=== PATIENT | female | born 1975 | race Caucasian/White ===

== ENCOUNTER 2017-04-14 12:15 | Emergency (ER) | payer MEDICAID ==
--- NOTE | 2017-04-14 12:42 | EDM.PDOC ---
ED HPI GENERAL MEDICAL PROBLEM - General Chief Complaint: Upper Extremity Injury/Pain Stated Complaint: LT HAND PAIN Time Seen by Provider: 04/14/17 12:15 Source of Information: Reports: Patient History Limitations: Reports: No Limitations - History of Present Illness INITIAL COMMENTS - FREE TEXT/NARRATIVE: 41 y.o.w.f came to the ed due to pain at the base of her right thumb for 1 week or so. Pt was seen at her PMD who recommended a splint and motrin. Pt stated, those measures do not help. Pt denied trauma, is left handed, has FROM of all of her fingers. No other acute medical issues. BP 130/61 pulse 80 Temp 36.6, Pulse ox 98% RR 18 Onset Date: 04/07/17 Onset Time: 07:00 Duration: Day(s):, Intermittent Location: Reports: Upper Extremity, Right Quality: Reports: Dull Severity: Mild Improves with: Reports: Rest Worsens with: Reports: Movement Context: Reports: Other (does not remember ) Associated Symptoms: Reports: No Other Symptoms right hand Pain Score (Numeric/FACES): 7 - Related Data Allergies Allergy/AdvReac Type Severity Reaction Status Date / Time codeine Allergy Vomiting Verified 04/14/17 12:36 Home Meds: Home Meds . [Unable to Verify Home Med List] 04/14/17 [History] Review of Systems - Review of Systems Review Of Systems: See Below Constitutional: Reports: No Symptoms Eyes: Reports: No Symptoms Ears: Reports: No Symptoms Nose: Reports: No Symptoms Mouth/Throat: Reports: No Symptoms Respiratory: Reports: No Symptoms Cardiovascular: Reports: No Symptoms GI/Abdominal: Reports: No Symptoms Genitourinary: Reports: No Symptoms Musculoskeletal: Reports: Hand Pain (r thumb) Skin: Reports: No Symptoms Neurological: Reports: No Symptoms Psychiatric: Reports: No Symptoms ED EXAM, GENERAL - Physical Exam Exam: See Below Exam Limited By: No Limitations General Appearance: Alert, WD/WN, No Apparent Distress Eye Exam: Bilateral Eye: Normal Inspection Ears: Normal External Exam Ear Exam: Bilateral Ear: Auricle Normal Nose: Normal Inspection Throat/Mouth: Normal Inspection Head: Atraumatic Neck: Normal Inspection Respiratory/Chest: No Respiratory Distress Cardiovascular: Normal Peripheral Pulses Peripheral Pulses: 2+: Radial (L) GI/Abdominal: Normal Bowel Sounds, Soft (Female) Exam: Deferred Rectal (Female) Exam: Deferred Back Exam: Normal Inspection Extremities: Normal Inspection, Limited Range of Motion (of right thumb due to pain) Neurological: Alert Psychiatric: Normal Affect, Normal Mood Skin Exam: Warm, Intact, Normal Color Lymphatic: No Adenopathy Course - Vital Signs Text/Narrative:: 41 y.o.w.f came to the ed due to pain at the base of her right thumb for 1 week or so. Pt was seen at her PMD who recommended a splint and motrin. Pt stated, those measures do not help. Pt denied trauma, is left handed, has FROM of all of her fingers. No other acute medical issues. BP 130/61 pulse 80 Temp 36.6, Pulse ox 98% RR 18 PE: minor tenderness at the base of the right thumb. FROM Imaging: Not indicat Impression: R thumb sprain X 1 week Tx: Motrin, Ice Reexam: Improved Plan: D/C with instructions Last Recorded V/S: Last Vital Signs Temp Pulse 86 04/14/17 12:15 Resp 16 04/14/17 12:15 BP 130/61 04/14/17 12:15 Pulse Ox 98 04/14/17 12:15 Departure - Departure Time of Disposition: 12:40 Disposition: Home, Self-Care 01 Condition: Good Clinical Impression: Sprain of right thumb Qualifiers: Encounter type: initial encounter Sprain of finger site: metacarpophalangeal joint Qualified Code(s): S63.641A - Sprain of metacarpophalangeal joint of right thumb, initial encounter - Discharge Information Instructions: Thumb Sprain Referrals: Purvi Guerra NP [Primary Care Provider] - Forms: ED Department Discharge Additional Instructions: Please take Motrin, apply ice to the affected area, Please f/u with your PMD and or orthopedic surgeon.
== END 2017-04-14 12:50 | disposition home or self-care (01) ==
LOC: FB.ED 12:15
DX: S63.641A Sprain of metacarpophalangeal joint of right thumb, initial encounter (principal); Z88.5 Allergy status to narcotic agent; X58.XXXA Exposure to other specified factors, initial encounter
CPT/HCPCS: 99283

== ENCOUNTER 2017-07-21 00:17 | Emergency (ER) | payer MEDICAID ==
--- NOTE | 2017-07-21 00:58 | EDM.PDOC ---
ED HPI GENERAL MEDICAL PROBLEM - General Chief Complaint: Upper Extremity Injury/Pain Stated Complaint: RT FINGER PAIN Time Seen by Provider: 07/21/17 00:45 Source of Information: Reports: Patient History Limitations: Reports: No Limitations - History of Present Illness INITIAL COMMENTS - FREE TEXT/NARRATIVE: Carla comes in for inspection of fingers #3,4,5 on right hand that were injured when slammed by a car trunk lid about a week ago. There is resiual pain and some stiffness that she is concerned about not improving. She is also worried about infection. There is no numbness. She has taken no meds. Rt hand Pain Score (Numeric/FACES): 10 - Related Data Allergies Allergy/AdvReac Type Severity Reaction Status Date / Time codeine Allergy Vomiting Verified 07/21/17 00:32 Home Meds: Home Meds . [Unable to Verify Home Med List] 04/14/17 [History] Past Medical History Cardiovascular History: Reports: CAD, Hypertension, [place] Endocrine/Metabolic History: Reports: Diabetes, Type II, Hypothyroidism - Past Surgical History Cardiovascular Surgical History: Reports: Coronary Artery Bypass Social & Family History - Family History Family Medical History: Noncontributory Endocrine/Metabolic: Reports: Diabetes, Type I - Tobacco Use Smoking Status *Q: Current Every Day Smoker Years of Tobacco use: 20 Packs/Tins Daily: 0.5 - Caffeine Use Caffeine Use: Reports: Coffee, Soda - Recreational Drug Use Recreational Drug Use: No Review of Systems - Review of Systems Review Of Systems: ROS reveals no pertinent complaints other than HPI. ED EXAM, GENERAL - Physical Exam Exam: See Below Exam Limited By: No Limitations General Appearance: Alert, WD/WN, No Apparent Distress Head: Normocephalic Neck: Normal Inspection, Supple Respiratory/Chest: Lungs Clear, Normal Breath Sounds Cardiovascular: Regular Rate, Rhythm Back Exam: Normal Inspection Extremities: Limited Range of Motion (Digits #3,#4.#5 of R hand: healing abrasions overlying dorsal surfaces at PIP joints, minor swelling, no erythema or warmth, flexion of 45 deg only at PIP, 80 deg at DIP; no deformity of the MCP joints or R hand; CMS intact) Neurological: Alert, Oriented, CN II-XII Intact, Normal Gait, No Motor/Sensory Deficits Psychiatric: Normal Affect, Normal Mood Skin Exam: Warm, Dry Lymphatic: No Adenopathy Course - Vital Signs Text/Narrative:: No meds were administered at the [facility] ED. Last Recorded V/S: Last Vital Signs Temp 36.4 C 07/21/17 00:20 Pulse 73 07/21/17 00:20 Resp 18 07/21/17 00:20 BP 151/75 H 07/21/17 00:20 Pulse Ox 100 07/21/17 00:20 Departure - Departure Time of Disposition: 00:58 Disposition: Home, Self-Care 01 Condition: Fair Clinical Impression: Abrasion of finger of right hand Qualifiers: Encounter type: initial encounter Qualified Code(s): S60.419A - Abrasion of unspecified finger, initial encounter Contusion of finger of right hand Qualifiers: Encounter type: initial encounter Finger: unspecified finger Qualified Code(s) : S60.00XA - Contusion of unspecified finger without damage to nail, initial encounter - Discharge Information Referrals: PCP,None [Primary Care Provider] - - Problem List & Annotations (1) Abrasion of finger of right hand SNOMED Code(s): 917204749 Code(s): S60.419A - ABRASION OF UNSPECIFIED FINGER, INITIAL ENCOUNTER Status: Acute Current Visit: Yes Annotation/Comment:: Local wound cares Qualifiers: Encounter type: initial encounter Qualified Code(s): S60.419A - Abrasion of unspecified finger, initial encounter (2) Contusion of finger of right hand SNOMED Code(s): 22088778 Code(s): S60.00XA - CONTUSION OF UNSP FINGER WITHOUT DAMAGE TO NAIL, INIT ENCNTR Status: Acute Current Visit: Yes Annotation/Comment:: AROM encouraged, NSAIDs for analgesic Qualifiers: Encounter type: initial encounter Finger: unspecified finger Qualified Code(s): S60.00XA - Contusion of unspecified finger without damage to nail, initial encounter - Problem List Review Problem List Initiated/Reviewed/Updated: Yes - Assessment/Plan Plan: Follow up if needed.
== END 2017-07-21 01:00 | disposition home or self-care (01) ==
LOC: FB.ED 00:17
DX: S60.00XA Contusion of unspecified finger without damage to nail, initial encounter (principal); S60.412A Abrasion of right middle finger, initial encounter; S60.414A Abrasion of right ring finger, initial encounter; S60.416A Abrasion of right little finger, initial encounter; I10 Essential (primary) hypertension; E11.9 Type 2 diabetes mellitus without complications; F17.210 Nicotine dependence, cigarettes, uncomplicated; Z88.5 Allergy status to narcotic agent; W23.1XXA Caught, crushed, jammed, or pinched between stationary objects, initial encounter
CPT/HCPCS: 99283

== ENCOUNTER 2018-04-28 19:56 | Emergency (ER) | payer MEDICAID ==
--- NOTE | 2018-04-28 20:45 | EDM.PDOC ---
ED HPI GENERAL MEDICAL PROBLEM - General Chief Complaint: General Stated Complaint: FLU SYMPTONS Time Seen by Provider: 04/28/18 20:00 Source of Information: Reports: Patient, Family History Limitations: Reports: No Limitations - History of Present Illness INITIAL COMMENTS - FREE TEXT/NARRATIVE: 42 years old w f with IDDM, came to the ed with her SO due to gen bodyache, nausea, ear pain and not feeling well. Pt denies trauma, no C/P no Dysuria, had , however, sick contact. Her blood sugar was 350 HOME COORDINATOR. Pt took her insulin, BS did not go down, however. No other acute medical issues. BP 158/82 RR 16 Pulse ox 98% on RA Temp 36.7 Pulse 87 Onset Date: 04/17/18 Onset Time: 08:00 Duration: Day(s):, Getting Worse, Intermittent Location: Reports: Face, Generalized Quality: Reports: Ache, Burning Severity: Moderate Improves with: Reports: Medication Worsens with: Reports: None Context: Reports: Sick Contact Associated Symptoms: Reports: Nausea/Vomiting, Weakness - Related Data Allergies Allergy/AdvReac Type Severity Reaction Status Date / Time codeine Allergy Vomiting Verified 04/28/18 20:22 Home Meds: Home Meds Amoxicillin/Potassium Clav [Augmentin 875-125 Tablet] 1 each PO BID #20 tablet 04/28/18 [Rx] Hydrocort/Neomycin/Polymyxin B [Cortisporin Otic Soln] 3 drop EARBOTH Q8HR #1 bottle 04/28/18 [Rx] Past Medical History Cardiovascular History: Reports: CAD, Hypertension, [place] Endocrine/Metabolic History: Reports: Diabetes, Type II, Hypothyroidism - Past Surgical History Cardiovascular Surgical History: Reports: Coronary Artery Bypass Social & Family History - Family History Family Medical History: Noncontributory Endocrine/Metabolic: Reports: Diabetes, Type I - Caffeine Use Caffeine Use: Reports: Coffee, Soda ED ROS GENERAL - Review of Systems Review Of Systems: See Below Constitutional: Reports: Decreased Appetite HEENT: Reports: Ear Pain Respiratory: Reports: No Symptoms Cardiovascular: Reports: No Symptoms Endocrine: Reports: High Glucose GI/Abdominal: Reports: Nausea : Reports: No Symptoms Musculoskeletal: Reports: Muscle Pain (geneelized ) Skin: Reports: No Symptoms Neurological: Reports: No Symptoms Psychiatric: Reports: No Symptoms Hematologic/Lymphatic: Reports: No Symptoms Immunologic: Reports: No Symptoms ED EXAM, GENERAL - Physical Exam Exam: See Below Exam Limited By: No Limitations General Appearance: Alert, WD/WN, Moderate Distress Eye Exam: Bilateral Eye: Normal Inspection Ears: Normal Canal, Other (OI/OE) Ear Exam: Bilateral Ear: Auricle Normal Nose: Normal Inspection, Normal Mucosa Throat/Mouth: Normal Lips, Normal Voice, No Airway Compromise, Other (dry mucosal membrane) Head: Atraumatic, Normocephalic Neck: Normal Inspection, Supple, Non-Tender Respiratory/Chest: No Respiratory Distress, Lungs Clear, Normal Breath Sounds, No Accessory Muscle Use, Chest Non-Tender Cardiovascular: Normal Peripheral Pulses, Regular Rate, Rhythm, No Edema, No Gallop, No Murmur, No Rub Peripheral Pulses: 2+: Brachial (R) GI/Abdominal: Normal Bowel Sounds, Soft, Non-Tender, No Organomegaly, No Abnormal Bruit, No Mass, Pelvis Stable (Female) Exam: Deferred Rectal (Female) Exam: Deferred Back Exam: Normal Inspection, Full Range of Motion Extremities: Normal Inspection, Normal Range of Motion, Non-Tender, No Pedal Edema Neurological: Alert, Oriented, CN II-XII Intact, Normal Cognition, Normal Gait, No Motor/Sensory Deficits Psychiatric: Normal Affect, Normal Mood Skin Exam: Warm, Dry, Intact, Normal Color, No Rash Lymphatic: No Adenopathy Course - Vital Signs Text/Narrative:: 42 years old w f with IDDM, came to the ed with her SO due to gen bodyache, nausea, ear pain and not feeling well. Pt denies trauma, no C/P no Dysuria, had , however, sick contact. Her blood sugar was 350 HOME COORDINATOR. Pt took her insulin, BS did not go down, however. No other acute medical issues. BP 158/82 RR 16 Pulse ox 98% on RA Temp 36.7 Pulse 87 PE: WNWD w f with gen body ache, not feeling well, ear pain high BS and mild nausea, no vomiting Labs: CBC nl, BMP: Na 130 K 4.6 GFR > 60 HGA1C 10.5 UA Glucosuria Impression: IDDM, hyperglycemia, Noncompliant, OM/OI. viral syndrome, tension H/ A Tx: Augmentin, Reg Insulin, NS, Zofran, Toradol Reexam: Improved, BS was 256 on D/C Plan: D/C with instructions Last Recorded V/S: Last Vital Signs Temp 37.2 C 04/28/18 22:35 Pulse 100 04/28/18 20:00 Resp 18 04/28/18 22:35 BP 147/81 H 04/28/18 22:35 Pulse Ox 97 04/28/18 22:35 - Orders/Labs/Meds Orders: Active Orders 24 hr Category Date Time Status Accu Check [Blood Glucose Check, Bedside] [RC] ONETIME Care 04/28/18 20:10 Active Peripheral IV Insertion Adult [OM.PC] Routine Oth 04/28/18 21:14 Ordered Labs: Laboratory Tests 04/28/18 04/28/18 04/28/18 Range/Units 20:12 20:35 20:35 WBC 5.4 (4.5-12.0) X10-3/uL RBC 4.47 (3.23-5.20) x10(6)uL Hgb 13.7 (11.5-15.5) g/dL Hct 40.7 (30.0-51.3) % MCV 91.2 (80-96) fL MCH 30.6 (27.7-33.6) pg MCHC 33.6 (32.2-35.4) g/dL RDW 11.7 (11.5-15.5) % Plt Count 178 (125-369) X10(3)uL MPV 8.1 (7.4-10.4) fL Neut % (Auto) 73.6 (46-82) % Lymph % (Auto) 14.3 (13-37) % Angelina % (Auto) 8.3 (4-12) % Eos % (Auto) 3 (1.0-5.0) % Baso % (Auto) 0 (0-2) % Neut # (Auto) 4.0 (1.6-8.3) # Lymph # (Auto) 0.8 (0.6-5.0) # Angelina # (Auto) 0.4 (0.0-1.3) # Eos # (Auto) 0.2 (0.0-0.8) # Baso # (Auto) 0.0 (0.0-0.2) # Sodium 130 L (135-145) mmol/L Potassium 4.6 (3.5-5.3) mmol/L Chloride 97 L (100-110) mmol/L Carbon Dioxide 26 (21-32) mmol/L BUN 13 (7-18) mg/dL Creatinine 1.0 (0.55-1.02) mg/dL Est Cr Clr Drug Dosing 57.37 mL/min Estimated GFR (MDRD) > 60 (>60) BUN/Creatinine Ratio 13.0 (9-20) Glucose 311 H (80-116) mg/dL POC Glucose 316 H (80-116) mg/dL Hemoglobin A1c (4.5-6.2) % Calcium 8.6 (8.6-10.2) mg/dL Total Bilirubin 0.3 (0.1-1.3) mg/dL AST 12 (5-25) IU/L ALT 22 (12-36) U/L Alkaline Phosphatase 94 (56-112) IU/L Total Protein 7.0 (6.0-8.0) g/dL Albumin 3.1 L (3.5-5.2) g/dL Globulin 3.9 g/dL Albumin/Globulin Ratio 0.8 Urine Color (YELLOW) Urine Appearance (CLEAR) Urine pH (5.0-6.5) Ur Specific Lawrence (1.010-1.025) Urine Protein (NEGATIVE) mg/dL Urine Glucose (UA) (NEGATIVE) mg/dL Urine Ketones (NEGATIVE) mg/dL Urine Occult Blood (NEGATIVE) Urine Nitrite (NEGATIVE) Urine Bilirubin (NEGATIVE) Urine Urobilinogen (NEGATIVE) mg/dL Ur Leukocyte Esterase (NEGATIVE) Urine RBC (0) Urine WBC (0) Ur Squamous Epith Cells (NS,R,O) Urine Bacteria (NS) 04/28/18 04/28/18 04/28/18 Range/Units 20:35 20:51 22:14 WBC (4.5-12.0) X10-3/uL RBC (3.23-5.20) x10(6)uL Hgb (11.5-15.5) g/dL Hct (30.0-51.3) % MCV (80-96) fL MCH (27.7-33.6) pg MCHC (32.2-35.4) g/dL RDW (11.5-15.5) % Plt Count (125-369) X10(3)uL MPV (7.4-10.4) fL Neut % (Auto) (46-82) % Lymph % (Auto) (13-37) % Angelina % (Auto) (4-12) % Eos % (Auto) (1.0-5.0) % Baso % (Auto) (0-2) % Neut # (Auto) (1.6-8.3) # Lymph # (Auto) (0.6-5.0) # Angelina # (Auto) (0.0-1.3) # Eos # (Auto) (0.0-0.8) # Baso # (Auto) (0.0-0.2) # Sodium (135-145) mmol/L Potassium (3.5-5.3) mmol/L Chloride (100-110) mmol/L Carbon Dioxide (21-32) mmol/L BUN (7-18) mg/dL Creatinine (0.55-1.02) mg/dL Est Cr Clr Drug Dosing mL/min Estimated GFR (MDRD) (>60) BUN/Creatinine Ratio (9-20) Glucose (80-116) mg/dL POC Glucose 248 H (80-116) mg/dL Hemoglobin A1c 10.2 H (4.5-6.2) % Calcium (8.6-10.2) mg/dL Total Bilirubin (0.1-1.3) mg/dL AST (5-25) IU/L ALT (12-36) U/L Alkaline Phosphatase (56-112) IU/L Total Protein (6.0-8.0) g/dL Albumin (3.5-5.2) g/dL Globulin g/dL Albumin/Globulin Ratio Urine Color Yellow (YELLOW) Urine Appearance Clear (CLEAR) Urine pH 5.0 (5.0-6.5) Ur Specific Lawrence 1.015 (1.010-1.025) Urine Protein 30 H (NEGATIVE) mg/dL Urine Glucose (UA) >1000 H (NEGATIVE) mg/dL Urine Ketones Negative (NEGATIVE) mg/dL Urine Occult Blood Moderate H (NEGATIVE) Urine Nitrite Negative (NEGATIVE) Urine Bilirubin Negative (NEGATIVE) Urine Urobilinogen Normal (NEGATIVE) mg/dL Ur Leukocyte Esterase Negative (NEGATIVE) Urine RBC 0-5 (0) Urine WBC 0-5 (0) Ur Squamous Epith Cells Occasional (NS,R,O) Urine Bacteria Rare H (NS) Meds: Medications Discontinued Medications Generic Name Dose Route Start Last Admin Trade Name Freq PRN Reason Stop Dose Admin Sodium Chloride 1,000 mls @ 999 mls/hr 04/28/18 21:03 04/28/18 21:10 Normal Saline IV 04/28/18 22:03 999 mls/hr .BOLUS ONE Administration Insulin Human Regular 7 unit 04/29/18 07:30 Humulin R SUBCUT BIDAC SHARAN Insulin Human Regular 7 unit 04/28/18 21:14 04/28/18 21:15 Humulin R SUBCUT 04/28/18 21:15 7 unit ONETIME STA Administration Insulin Human Regular Confirm 04/28/18 21:16 04/28/18 21:23 Humulin R Administered 04/28/18 21:17 Not Given Dose 300 unit .ROUTE .STK-MED ONE Ketorolac Tromethamine 30 mg 04/28/18 22:29 04/28/18 22:30 Toradol IVPUSH 04/28/18 22:30 30 mg ONETIME ONE Administration Ondansetron HCl 8 mg 04/28/18 21:09 04/28/18 21:15 Zofran IVPUSH 04/28/18 21:10 8 mg ONETIME ONE Administration Sodium Chloride 10 ml 04/28/18 21:14 04/28/18 21:10 Saline Flush FLUSH 10 ml ASDIRECTED PRN Administration Keep Vein Open Departure - Departure Time of Disposition: 22:31 Disposition: Home, Self-Care 01 Condition: Good Clinical Impression: Hyperglycemia due to type 2 diabetes mellitus, Otitis media, Viral syndrome - Discharge Information Prescriptions: Hydrocort/Neomycin/Polymyxin B [Cortisporin Otic Soln] 3 drop EARBOTH Q8HR #1 bottle Amoxicillin/Potassium Clav [Augmentin 875-125 Tablet] 1 each PO BID #20 tablet Instructions: Ear Drops, Adult, Otitis Media, Adult, [id number] Referrals: PCP,None [Primary Care Provider] - Forms: ED Department Discharge Additional Instructions: Please check your blood sugar every 6-8 and adjust the insulin does accordingly , take abx as recommended, please f/u, come back if your symptoms get worse acutely. - My Orders Last 24 Hours: My Active Orders 04/28/18 20:10 Accu Check [Blood Glucose Check, Bedside] [RC] ONETIME 04/28/18 21:14 Peripheral IV Insertion Adult [OM.PC] Routine - Assessment/Plan Last 24 Hours: My Active Orders 04/28/18 20:10 Accu Check [Blood Glucose Check, Bedside] [RC] ONETIME 04/28/18 21:14 Peripheral IV Insertion Adult [OM.PC] Routine
[2018-04-28 21:00] LABS: HEMOGLOBIN A1C 10.2 % (4.5-6.2)
[2018-04-28] MEDS ORDERED: Sodium Chloride 0.9% 1,000 ML IV ONE (21:03)
[2018-04-28] MEDS ORDERED: Ondansetron 4 MG/2 ML SDV IVPUSH ONE (21:09)
[2018-04-28] MEDS ORDERED: Insulin Regular, Human 100 Units/ML 3 ML Vial SUBCUT STA (21:14)
[2018-04-28] MEDS ORDERED: Sodium Chloride 0.9% 10 ML Syringe FLUSH PRN (21:14)
[2018-04-28] MEDS ORDERED: Insulin Regular, Human 100 Units/ML 3 ML Vial ONE (21:16)
[2018-04-28] MEDS ORDERED: Ketorolac 30 MG/ML SDV IVPUSH ONE (22:29)
[2018-04-29] MEDS ORDERED: Insulin Regular, Human 100 Units/ML 3 ML Vial SUBCUT SCH (07:30)
== END 2018-04-28 22:45 | disposition home or self-care (01) ==
LOC: FB.ED 19:56
DX: E11.65 Type 2 diabetes mellitus with hyperglycemia (principal); H66.90 Otitis media, unspecified, unspecified ear; B34.9 Viral infection, unspecified; G44.209 Tension-type headache, unspecified, not intractable; I10 Essential (primary) hypertension; Z91.19 Patient's noncompliance with other medical treatment and regimen; Z88.5 Allergy status to narcotic agent
CPT/HCPCS: 36415; 80053; 81001; 82962; 83036; 85025; 96361; 96374; 96375; 99283; J1815; J1885; J2405; J7030

== ENCOUNTER 2018-05-15 09:54 | Emergency (ER) | payer MEDICAID ==
[2018-05-15] MEDS ORDERED: Alum Hydroxide/Mag Hydroxide 15 ML, Lidocaine 2% 15 ML PO ONE ×2 (10:35)
[2018-05-15] MEDS ORDERED: Ondansetron 8 MG Tab.DIS PO ONE (10:35)
--- NOTE | 2018-05-15 10:40 | EDM.PDOC ---
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 after eating and unable to pass stool unless taking a laxative and gen Malaise. No N/V no dizziness. No Trauma. No other acute medical issues. BP 125/80 RR 18 Pulse ox 98% on RA Temp 36.8 Pulse 101 Onset Date: 05/15/18 Onset Time: 06:00 Duration: Getting Worse, Intermittent Location: Reports: Abdomen (epigastric pain) Quality: Reports: Ache, Burning Severity: Mild Improves with: Reports: Medication, Other (not eating) Worsens with: Reports: Eating Context: Reports: Other Abdominal Pain Score (Numeric/FACES): 8 - Related Data Allergies Allergy/AdvReac Type Severity Reaction Status Date / Time codeine Allergy Vomiting Verified 04/28/18 20:22 naproxen [From Aleve] Allergy Rash Verified 05/15/18 10:04 Home Meds: Home Meds Amiodarone [Cordarone] 200 mg DAILY 05/15/18 [History] Bisacodyl [Correctol] 15 mg PO DAILY PRN 05/15/18 [History] Carvedilol 6.25 mg 1200 05/15/18 [History] Furosemide 20 mg ASDIRECTED PRN 05/15/18 [History] Insulin Glargine,Hum.Rec.Anlog [Basaglar Kwikpen U-100] 15 unit SQ BEDTIME 05/15 [History] Levothyroxine [Synthroid] 50 mcg PO ACBREAKFAST 05/15/18 [History] Omeprazole 20 mg PO BID #60 tabElizabethrap 05/15/18 [Rx] atorvaSTATin Calcium [Atorvastatin Calcium] 80 mg 1200 05/15/18 [History] metFORMIN [Glucophage XR] 500 mg PO BIDMEALS 05/15/18 [History] Past Medical History Cardiovascular History: Reports: CAD, High Cholesterol, Hypertension, [place] Other Cardiovascular History: 3 vessel bypass Gastrointestinal History: Reports: Chronic Constipation, GERD, GI Bleed, PUD Genitourinary History: Reports: None SITE ACQUISITION MANAGER History: Reports: Other SITE ACQUISITION MANAGER History: [id number] Endocrine/Metabolic History: Reports: Diabetes, Type II, Hypothyroidism - Infectious Disease History Infectious Disease History: Reports: Chicken Pox, Shingles - Past Surgical History HEENT Surgical History: Reports: Myringotomy w Tube(s) Other HEENT Surgeries/Procedures: bilat tubes in ears Cardiovascular Surgical History: Reports: Coronary Artery Bypass GI Surgical History: Reports: EGD Female Surgical History: Reports: Section, Tubal Ligation Other Female Surgeries/Procedures: CS x 1 Social & Family History - Family History Family Medical History: Noncontributory Endocrine/Metabolic: Reports: Diabetes, Type I - Tobacco Use Smoking Status *Q: Current Every Day Smoker Years of Tobacco use: 30 Packs/Tins Daily: 1 - Caffeine Use Caffeine Use: Reports: Coffee, Soda - Recreational Drug Use Recreational Drug Use: No ED ROS GENERAL - Review of Systems Review Of Systems: See Below Constitutional: Reports: Malaise HEENT: Reports: No Symptoms Respiratory: Reports: No Symptoms Cardiovascular: Reports: Chest Pain Endocrine: Reports: No Symptoms GI/Abdominal: Reports: No Symptoms : Reports: No Symptoms Musculoskeletal: Reports: No Symptoms Skin: Reports: No Symptoms Neurological: Reports: No Symptoms Psychiatric: Reports: No Symptoms Hematologic/Lymphatic: Reports: No Symptoms Immunologic: Reports: No Symptoms ED EXAM, GI/ABD - Physical Exam Exam: See Below Exam Limited By: No Limitations General Appearance: Alert, WD/WN, Mild Distress Eyes: Bilateral: Normal Appearance Ears: Normal External Exam Nose: Normal Inspection Throat/Mouth: Normal Inspection, Normal Voice, No Airway Compromise Head: Atraumatic, Normocephalic Neck: Normal Inspection, Supple, Non-Tender, Full Range of Motion Respiratory/Chest: No Respiratory Distress, Lungs Clear, Normal Breath Sounds, Chest Non-Tender Cardiovascular: Normal Peripheral Pulses, Regular Rate, Rhythm, No Edema, No Gallop, No Murmur GI/Abdominal Exam: Normal Bowel Sounds, No Organomegaly, No Abnormal Bruit, No Mass, Pelvis Stable, Tender (epigatric) (Female) Exam: Deferred Rectal (Female) Exam: Deferred Back Exam: Normal Inspection, Full Range of Motion Extremities: Normal Inspection, Normal Range of Motion, Non-Tender, No Pedal Edema, Normal Capillary Refill Neurological: Alert, Oriented, CN II-XII Intact, Normal Cognition, Normal Gait Psychiatric: Normal Affect, Normal Mood Skin Exam: Warm, Dry, Intact, Normal Color, No Rash Lymphatic: No Adenopathy EKG INTERPRETATION EKG Date: 05/15/18 Time: 12:40 Rhythm: NSR Rate (Beats/Min): 85 [place]: Normal P-Wave: Present QRS: Normal ST-T: Normal QT: Normal Comparison: NA - No Prior EKG EKG Interpretation Comments: second ECG: same as 1st ECG, HR 89 ST on Lead II 1/2 mm elevated Course - Vital Signs Text/Narrative:: 42 y.o.w.f -smoker- H/O CAD, S/O triple CABG, IDDM, came to the ed due to epigastric pain, gen abd. after eating and unable to pass stool unless taking a laxative and gen Malaise. No N/V no dizziness. No Trauma. No other acute medical issues. BP 125/80 RR 18 Pulse ox 98% on RA Temp 36.8 Pulse 101 PE: WNWD W F with Gen Malaise and epigastric pain and mucus stool Imaging: Abd: NAD. Nephrolith left kidney Labs: Ca 10.9 Amylase 157 GFR 47 WBC 14.7 Neutros 11.1 Na 131 K 5.2 GFR 47 BUN 29 Cr 1.7 Stool was brown but Quiac pos. Impression: Dehydration, Hypercalcemia, pancreatitis, Hematochezia hyponatremia (amylase elevated, Lipase test not available), Gen Abd. pain after after eating Dx: Mesenteric angina. Tx: NS Zofran, GI coctail, Protronix Reexam: 100% pain free Plan: D/C with instructions Last Recorded V/S: Last Vital Signs Temp 36.3 C 05/15/18 10:00 Pulse 94 05/15/18 15:10 Resp 18 05/15/18 15:10 BP 111/68 05/15/18 15:10 Pulse Ox 99 05/15/18 15:10 - Orders/Labs/Meds Orders: Active Orders 24 hr Category Date Time Status Abdomen 2V AP Flat Upright [CR] Stat Exams 05/15/18 11:17 Taken Labs: Laboratory Tests 05/15/18 05/15/18 05/15/18 Range/Units 11:27 11:27 11:28 WBC 14.7 H (4.5-12.0) X10-3/uL RBC 4.91 (3.23-5.20) x10(6)uL Hgb 15.0 (11.5-15.5) g/dL Hct 44.7 (30.0-51.3) % MCV 91.0 (80-96) fL MCH 30.5 (27.7-33.6) pg MCHC 33.6 (32.2-35.4) g/dL RDW 11.7 (11.5-15.5) % Plt Count 338 (125-369) X10(3)uL MPV 8.4 (7.4-10.4) fL Neut % (Auto) 75.1 (46-82) % Lymph % (Auto) 14.0 (13-37) % [place] % (Auto) 6.4 (4-12) % Eos % (Auto) 4 (1.0-5.0) % Baso % (Auto) 0 (0-2) % Neut # (Auto) 11.1 H (1.6-8.3) # Lymph # (Auto) 2.1 (0.6-5.0) # [place] # (Auto) 0.9 (0.0-1.3) # Eos # (Auto) 0.6 (0.0-0.8) # Baso # (Auto) 0.0 (0.0-0.2) # Sodium 131 L (135-145) mmol/L Potassium 5.2 (3.5-5.3) mmol/L Chloride 97 L (100-110) mmol/L Carbon Dioxide 25 (21-32) mmol/L BUN 29 H D (7-18) mg/dL Creatinine 1.2 H (0.55-1.02) mg/dL Est Cr Clr Drug Dosing 47.81 mL/min Estimated GFR (MDRD) 49 L (>60) BUN/Creatinine Ratio 24.2 H (9-20) Glucose 311 H (80-116) mg/dL Calcium 10.9 H D (8.6-10.2) mg/dL Total Bilirubin 0.5 (0.1-1.3) mg/dL Direct Bilirubin 0.12 (0.10-0.20) mg/dL AST 10 D (5-25) IU/L ALT 32 D (12-36) U/L Alkaline Phosphatase 108 (56-112) IU/L Total Protein 8.3 H (6.0-8.0) g/dL Albumin 3.7 (3.5-5.2) g/dL Amylase 172 H (25-115) U/L Meds: Medications Discontinued Medications Generic Name Dose Route Start Last Admin Trade Name Nobleq PRN Reason Stop Dose Admin Al Hydroxide/Mg Hydroxide 15 0 ml 05/15/18 10:35 05/15/18 10:49 ml/ Lidocaine HCl 15 ml PO 05/15/18 10:36 15 ml ONETIME ONE Administration Sodium Chloride 1,000 mls @ 999 mls/hr 05/15/18 13:02 05/15/18 13:33 Normal Saline IV 05/15/18 14:02 999 mls/hr .BOLUS ONE Administration Ondansetron HCl 8 mg 05/15/18 10:35 05/15/18 10:45 Zofran Odt PO 05/15/18 10:36 8 mg ONETIME ONE Administration Pantoprazole Sodium 40 mg 05/15/18 13:11 05/15/18 13:46 Protonix Iv IVPUSH 05/15/18 13:12 40 mg ONETIME ONE Administration Departure - Departure Time of Disposition: 14:59 Disposition: Home, Self-Care 01 Condition: Good Clinical Impression: Hypercalcemia, Hyponatremia, Stool mucus, Hematochezia - Discharge Information Prescriptions: Omeprazole 20 mg PO BID #60 tab.rap. Instructions: Hypercalcemia, Acute Pancreatitis, [id number], Ondansetron injection, Pantoprazole injection, Dehydration, Adult, [id number], Diarrhea, Adult, [id number] Referrals: Bárbara Curtis NP [Primary Care Provider] - Gilberto Smith MD [Physician] - Forms: ED Department Discharge Additional Instructions: Please continue your medications, please follow up with Dr. Smith at clinic for recheck. Please come back if your symptoms worsen acutely. Omeprazole 20mg twice a day, start tomorrow. - My Orders Last 24 Hours: My Active Orders 05/15/18 11:17 Abdomen 2V AP Flat Upright [CR] Stat - Assessment/Plan Last 24 Hours: My Active Orders 05/15/18 11:17 Abdomen 2V AP Flat Upright [CR] Stat
[2018-05-15] MEDS ORDERED: Sodium Chloride 0.9% 1,000 ML IV ONE (13:02)
[2018-05-15] MEDS ORDERED: Pantoprazole 40 MG Vial IVPUSH ONE (13:11)
== END 2018-05-15 15:18 | disposition home or self-care (01) ==
LOC: FB.ED 09:54
DX: E83.52 Hypercalcemia (principal); E87.1 Hypo-osmolality and hyponatremia; K92.1 Melena; I10 Essential (primary) hypertension; I25.2 Old myocardial infarction; I25.10 Atherosclerotic heart disease of native coronary artery without angina pectoris; E11.9 Type 2 diabetes mellitus without complications; E03.9 Hypothyroidism, unspecified; F17.210 Nicotine dependence, cigarettes, uncomplicated; Z79.899 Other long term (current) drug therapy; Z79.4 Long term (current) use of insulin; Z96.22 Myringotomy tube(s) status; Z98.51 Tubal ligation status; Z88.5 Allergy status to narcotic agent
CPT/HCPCS: 36415; 74019; 80048; 80076; 82150; 82272; 85025; 96361; 96374; 99284; A9270; C9113; J7030

== ENCOUNTER 2018-06-01 21:50 | Emergency (ER) | payer SELFPAY ==
[2018-06-01] MEDS ORDERED: predniSONE 20 MG Tab PO ONE (21:53)
[2018-06-01] MEDS ORDERED: diphenhydrAMINE 50 MG/ML SDV IVPUSH ONE (22:01)
[2018-06-01] MEDS ORDERED: Hydrocortisone Sodium Succinate 100 MG/2 ML SDV IVPUSH ONE (22:01)
[2018-06-01] MEDS ORDERED: Pantoprazole 40 MG Vial IVPUSH ONE (22:02)
[2018-06-01] MEDS ORDERED: hydrOXYzine HCl 25 MG Tab PO ONE (22:04)
--- NOTE | 2018-06-01 22:10 | EDM.PDOC ---
ED HPI GENERAL MEDICAL PROBLEM - General Stated Complaint: ALLERGIC REACTION Time Seen by Provider: 06/01/18 21:55 Source of Information: Reports: Patient History Limitations: Reports: No Limitations - History of Present Illness INITIAL COMMENTS - FREE TEXT/NARRATIVE: Juan Carlos is a 42-year-old., Smoking 2 para 2 last disappeared years ago presents with a cane Loren pain reliever at 8 PM. She said admitted itching immediately. She denies shortness of breath wheezing throat swelling difficulties with speech chest pain fast heart rate diaphoresis lightheadedness abdominal pain stridor cough muscle aches and pains. Her last episode of allergic reaction was that of dermatitis scratching itching which she took Aleve approximately a year ago. She is allergic to naproxen and codeine. She uses to drug and hypertensive therapy carvedilol and amiodarone. She is diabetic and hypothyroid and treated for GERD. He does not have a heart condition. She has chronic shortness of lung disease from her smoking. - Related Data Allergies Allergy/AdvReac Type Severity Reaction Status Date / Time codeine Allergy Vomiting Verified 06/01/18 23:04 naproxen [From Aleve] Allergy Rash Verified 06/01/18 23:04 Home Meds: Home Meds Amiodarone [Cordarone] 200 mg DAILY 05/15/18 [History] Bisacodyl [Correctol] 15 mg PO DAILY PRN 05/15/18 [History] Carvedilol 6.25 mg 1200 05/15/18 [History] Furosemide 20 mg ASDIRECTED PRN 05/15/18 [History] Insulin Glargine,Hum.Rec.Anlog [Basaglar Kwikpen U-100] 15 unit SQ BEDTIME 05/15 [History] Levothyroxine [Synthroid] 50 mcg PO ACBREAKFAST 05/15/18 [History] Omeprazole 20 mg PO BID #60 tab.rap.dr 05/15/18 [Rx] atorvaSTATin Calcium [Atorvastatin Calcium] 80 mg 1200 05/15/18 [History] metFORMIN [Glucophage XR] 500 mg PO BIDMEALS 05/15/18 [History] hydrOXYzine HCl [Hydroxyzine HCl] 50 mg PO Q6HR PRN #20 ml 06/01/18 [Rx] Past Medical History Cardiovascular History: Reports: CAD, High Cholesterol, Hypertension, [place] Other Cardiovascular History: 3 vessel bypass Gastrointestinal History: Reports: Chronic Constipation, GERD, GI Bleed, PUD Genitourinary History: Reports: None SYSTEMS DEVELOPMENT MANAGER History: Reports: Other SYSTEMS DEVELOPMENT MANAGER History: [id number] Endocrine/Metabolic History: Reports: Diabetes, Type II, Hypothyroidism - Infectious Disease History Infectious Disease History: Reports: Chicken Pox, Shingles - Past Surgical History HEENT Surgical History: Reports: Myringotomy w Tube(s) Other HEENT Surgeries/Procedures: bilat tubes in ears Cardiovascular Surgical History: Reports: Coronary Artery Bypass GI Surgical History: Reports: EGD Female Surgical History: Reports: Section, Tubal Ligation Other Female Surgeries/Procedures: CS x 1 Social & Family History - Family History Family Medical History: Noncontributory Endocrine/Metabolic: Reports: Diabetes, Type I - Caffeine Use Caffeine Use: Reports: Coffee, Soda ED ROS GENERAL - Review of Systems Review Of Systems: ROS reveals no pertinent complaints other than HPI. ED EXAM, GENERAL - Physical Exam Exam: See Below Free Text/Narrative:: Patient ended moderate distress and continually itches her forearms. Mild rash noted on forearms. She is attended by her . She has a smoking odor to her breath. An looks older than her age. She is not short of breath nor does she have chest pain no tachypnea no tachycardia noted. Exam Limited By: No Limitations General Appearance: Alert, WD/WN, Moderate Distress Eye Exam: Bilateral Eye: Normal Inspection Ear Exam: Bilateral Ear: Auricle Normal, Canal Normal, TM normal Nose: Normal Inspection Throat/Mouth: Normal Inspection, Normal Lips, Normal Teeth, Normal Gums, Normal Oropharynx, Normal Voice, No Airway Compromise, Other (No angioedema no edema of the uvula or pharynx.) Head: Atraumatic, Normocephalic Neck: Normal Inspection, Non-Tender, Carotid Bruit, Other (No tracheal tug or tracheal deviation) Respiratory/Chest: No Respiratory Distress, Lungs Clear, Normal Breath Sounds, No Accessory Muscle Use, Chest Non-Tender, Other (No tachypnea no difficulty breathing no wheezes no stridor) Cardiovascular: Normal Peripheral Pulses, Regular Rate, Rhythm, No Edema, No Gallop, No JVD, No Murmur, No Rub, Other (No diaphoresis normal pink colored skin) Peripheral Pulses: 2+: Radial (L), Radial (R) GI/Abdominal: Normal Bowel Sounds, Soft, Non-Tender, No Organomegaly, No Distention, No Abnormal Bruit, Other (Mild increase abdominal girth) (Female) Exam: Deferred Rectal (Female) Exam: Deferred Back Exam: Normal Inspection, Full Range of Motion Extremities: Normal Inspection, Normal Range of Motion, Non-Tender, No Pedal Edema, Normal Capillary Refill Neurological: Alert, Oriented, CN II-XII Intact, Normal Cognition, Normal Gait, Normal Reflexes, No Motor/Sensory Deficits Lymphatic: No Adenopathy Course - Orders/Labs/Meds Orders: Active Orders 24 hr Category Date Time Status Sodium Chloride 0.9% [Normal Saline] 1,000 ml Med 06/01/18 22:15 Ordered IV ASDIRECTED Medication Orders Sodium Chloride (Normal Saline) 1,000 mls @ 500 mls/hr IV ASDIRECTED SHARAN Last Admin: 06/01/18 22:11 Dose: 500 mls/hr Meds: Medications Generic Name Dose Route Start Last Admin Trade Name Freq PRN Reason Stop Dose Admin Sodium Chloride 1,000 mls @ 500 mls/hr 06/01/18 22:15 06/01/18 22:11 Normal Saline IV 500 mls/hr ASDIRECTED SHARAN Administration Discontinued Medications Generic Name Dose Route Start Last Admin Trade Name Freq PRN Reason Stop Dose Admin Diphenhydramine HCl 50 mg 06/01/18 22:01 Benadryl IVPUSH 06/01/18 22:02 ONETIME ONE Epinephrine HCl 0.3 mg 06/01/18 22:21 Adrenalin SUBCUT 06/01/18 22:22 ONETIME ONE Hydrocortisone Sodium Succinate 100 mg 06/01/18 22:01 06/01/18 22:12 Solu-Cortef IVPUSH 06/01/18 22:02 100 mg ONETIME ONE Administration Hydroxyzine HCl 25 mg 06/01/18 22:04 Atarax PO 06/01/18 22:05 ONETIME ONE Pantoprazole Sodium 40 mg 06/01/18 22:02 06/01/18 22:19 Protonix Iv IVPUSH 06/01/18 22:03 40 mg ONETIME ONE Administration Departure - Departure Time of Disposition: 22:20 (Patient has dermal allergic reaction. No involvement of respiratory passages, heart, no hypotension or tachycardia or tachypnea. No stridor no cough no tracheal deviation no tracheal tug no suggestion of compromise either cardiorespiratory status. No GI symptoms. She was treated aggressively with intravenous flush, Benadryl was not ordered since she had 50 mg prior to coming to the hospital, 100 mg hydrocortisone IV, protonixs 40 mg IV, Atarax 25 mg by mouth. 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 If necessary she'll receive triamcinolone ointment for the pruitius. At this point we'll forego this treatment. She does not need epinephrine now.at 2124 50 % improved but still itchy. Start Triamcinolone cream( ointment more efficacious but too much clothing soiling anticipated.) Disposition: Home, Self-Care 01 Condition: Good Clinical Impression: Smoker, S/P CABG x 3, Diabetes 1.5, managed as type 2 Allergic reaction caused by a drug Qualifiers: Encounter type: initial encounter Qualified Code(s): T78.40XA - Allergy, unspecified, initial encounter COPD (chronic obstructive pulmonary disease) Qualifiers: COPD type: unspecified COPD Qualified Code(s): J44.9 - Chronic obstructive pulmonary disease, unspecified Hypertension Qualifiers: Hypertension type: essential hypertension Qualified Code(s): I10 - Essential ( primary) hypertension - Discharge Information *PRESCRIPTION DRUG MONITORING PROGRAM REVIEWED*: Not Applicable *COPY OF PRESCRIPTION DRUG MONITORING REPORT IN PATIENT ATIF: Not Applicable Additional Instructions: 40 allergic reaction received cortisone. This was last 6-8 hours. Given prescription for prednisone to take tablet twice a day 20 mg each for the next 2 days. Also Benadryl which have at home 50 mg 4 times a day and Atarax drug of choice for itching 25 mg 3 times a day. If you feel too dizzy and lightheaded with discoloration of antihistamines and stop the Benadryl. He was Protonix one tabletsone - My Orders Last 24 Hours: My Active Orders 06/01/18 22:15 Sodium Chloride 0.9% [Normal Saline] 1,000 ml IV ASDIRECTED - Assessment/Plan Last 24 Hours: My Active Orders 06/01/18 22:15 Sodium Chloride 0.9% [Normal Saline] 1,000 ml IV ASDIRECTED
[2018-06-01] MEDS ORDERED: Sodium Chloride 0.9% 1,000 ML IV SCH (22:15)
[2018-06-01] MEDS ORDERED: EPINEPHrine 1 MG/ML SDV SUBCUT ONE (22:21)
[2018-06-01] MEDS ORDERED: Triamcinolone Acetonide 0.5% Crm 15 GM Tube TOP SCH (22:45)
[2018-06-01] MEDS: hydrOXYzine HCl 25 MG Tab PO PRN ×2 (22:47→22:48)
[2018-06-02] MEDS ORDERED: predniSONE 20 MG Tab PO SCH (08:00)
== END 2018-06-01 23:32 | disposition home or self-care (01) ==
LOC: FB.ED 21:52
DX: L27.0 Generalized skin eruption due to drugs and medicaments taken internally (principal); L29.9 Pruritus, unspecified; T39.315A Adverse effect of propionic acid derivatives, initial encounter; J44.9 Chronic obstructive pulmonary disease, unspecified; I25.2 Old myocardial infarction; E03.9 Hypothyroidism, unspecified; K21.9 Gastro-esophageal reflux disease without esophagitis; E78.5 Hyperlipidemia, unspecified; F17.200 Nicotine dependence, unspecified, uncomplicated; E13.8 Other specified diabetes mellitus with unspecified complications; Z79.899 Other long term (current) drug therapy; Z95.1 Presence of aortocoronary bypass graft; Z79.4 Long term (current) use of insulin; Z88.5 Allergy status to narcotic agent; Z88.8 Allergy status to other drugs, medicaments and biological substances
CPT/HCPCS: 96361; 96372; 96374; 96375; 99282; A9270; C9113; J0171; J1720; J7030

== ENCOUNTER 2019-09-09 17:33 | Emergency (ER) | payer MEDICAID ==
--- NOTE | 2019-09-09 17:41 | EDM.PDOC ---
ED HPI GENERAL MEDICAL PROBLEM - General Stated Complaint: R FOOT PINKY TOE INJURY Time Seen by Provider: 09/09/19 17:40 Source of Information: Reports: Patient History Limitations: Reports: No Limitations - History of Present Illness INITIAL COMMENTS - FREE TEXT/NARRATIVE: 44-year-old female who reports that a dog was attacking her cat and she was trying to get the dog off of the cat and she kicked at the dog and either hit the dog or hit a stove that the dog and cat were around and sustained an injury to the fourth and fifth toes on the right foot. This occurred approximate 5:05 PM. She reports that the right fifth toe "seems to bend sideways". She reports 0 /10 level of pain now at rest but when she bears weight or tries to put pressure on the right fifth toe the pain goes up to a 10/10. There was other injuries. There was some bleeding from the right fourth and fifth toes but this has been controlled with direct pressure. She reports that she is a diabetic and her blood sugars are not always very well-controlled. He states that when she remembers to take her insulin her blood sugars are fairly well controlled but when she does not take her insulin, she can be out of control. No nausea or vomiting. No difficulty breathing. No chest pain. Her no other associated signs or symptoms. There are no other modifying factors. 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 (see below) (Nothing) right toe Pain Score (Numeric/FACES): 6 - Related Data Allergies Allergy/AdvReac Type Severity Reaction Status Date / Time codeine Allergy Vomiting Verified 09/09/19 18:36 naproxen [From Aleve] Allergy Rash Verified 09/09/19 18:36 Home Meds: Home Meds Amiodarone [Cordarone] 200 mg PO DAILY 05/15/18 [History] Furosemide 20 mg ASDIRECTED PRN 05/15/18 [History] Insulin Glargine,Hum.Rec.Anlog [Basaglar Kwikpen U-100] 15 unit SQ BEDTIME 05/15 [History] Levothyroxine [Synthroid] 50 mcg PO ACBREAKFAST 05/15/18 [History] atorvaSTATin Calcium [Atorvastatin Calcium] 80 mg PO 1200 05/15/18 [History] carvediloL [Carvedilol] 6.25 mg PO 1200 05/15/18 [History] metFORMIN [Glucophage XR] 500 mg PO BIDMEALS 05/15/18 [History] hydrOXYzine HCL [Hydroxyzine HCl] 50 mg PO Q6HR PRN #20 ml 06/01/18 [Rx] Mupirocin Oint [Bactroban Oint] 22 gm TP TID #1 tube 09/09/19 [Rx] Past Medical History Cardiovascular History: Reports: CAD, High Cholesterol, Hypertension, MS Other Cardiovascular History: 3 vessel bypass Gastrointestinal History: Reports: Chronic Constipation, GERD, GI Bleed, PUD Genitourinary History: Reports: None 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: [id number] Endocrine/Metabolic History: Reports: Diabetes, Type II, Hypothyroidism - Infectious Disease History Infectious Disease History: Reports: Chicken Pox, Shingles - Past Surgical History HEENT Surgical History: Reports: Myringotomy w Tube(s) Other HEENT Surgeries/Procedures: bilat tubes in ears Cardiovascular Surgical History: Reports: Coronary Artery Bypass GI Surgical History: Reports: EGD Female Surgical History: Reports: Section, Tubal Ligation Social & Family History - Family History Endocrine/Metabolic: Reports: Diabetes, Type I - Tobacco Use Smoking Status *Q: Current Every Day Smoker - Caffeine Use Caffeine Use: Reports: Coffee, Soda - Alcohol Use Alcohol Use History: No - Living Situation & Occupation Occupation: Unemployed Review of Systems - Review of Systems Review Of Systems: See Below Constitutional: Reports: No Symptoms Eyes: Reports: No Symptoms Ears: Reports: No Symptoms Nose: Reports: No Symptoms Mouth/Throat: Reports: No Symptoms Respiratory: Reports: No Symptoms Cardiovascular: Reports: No Symptoms GI/Abdominal: Reports: No Symptoms Genitourinary: Reports: No Symptoms Musculoskeletal: Reports: Foot Pain (Right fifth toe pain) Skin: Reports: Wound (Right fourth and fifth toes with abrasions) Neurological: Reports: No Symptoms ED EXAM, GENERAL - Physical Exam Exam: See Below Exam Limited By: No Limitations General Appearance: Alert, WD/WN, Mild Distress Eye Exam: Bilateral Eye: EOMI, Normal Inspection Ears: Normal External Exam, Hearing Grossly Normal Ear Exam: Bilateral Ear: Auricle Normal Nose: Normal Inspection, Normal Mucosa, No Blood Throat/Mouth: Normal Inspection, Normal Oropharynx, Normal Voice, No Airway Compromise Head: Atraumatic, Normocephalic Neck: Normal Inspection, Supple, Non-Tender, Full Range of Motion Respiratory/Chest: No Respiratory Distress, Lungs Clear, Normal Breath Sounds, No Accessory Muscle Use Cardiovascular: Normal Peripheral Pulses, Regular Rate, Rhythm, No Murmur Peripheral Pulses: 2+: Radial (L), Radial (R), Dorsalis Pedis (L), Dorsalis Pedis (R) GI/Abdominal: Normal Bowel Sounds, Soft, Non-Tender Back Exam: Normal Inspection Extremities: No Pedal Edema, Normal Capillary Refill, Other (Tender over the proximal aspect of the proximal phalanx of the fifth toe) Neurological: Alert, Oriented, CN II-XII Intact, Normal Cognition, No Motor/ Sensory Deficits Skin Exam: Warm, Dry, Normal Color, No Rash, Wound/Incision (Abrasions on the fourth and fifth toes.) Course - Vital Signs Last Recorded V/S: Last Vital Signs Temp 36.3 C 09/09/19 17:45 Pulse 98 09/09/19 17:45 Resp 20 09/09/19 17:45 BP 138/74 09/09/19 17:45 Pulse Ox 99 09/09/19 17:45 - Orders/Labs/Meds Orders: Active Orders 24 hr Category Date Time Status Vaccines to be Administered [RC] PER UNIT ROUTINE Care 09/09/19 17:57 Active Foot Comp Min 3V Rt [CR] Stat Exams 09/09/19 17:56 Taken Meds: Medications Discontinued Medications Generic Name Dose Route Start Last Admin Trade Name Freq PRN Reason Stop Dose Admin Diphtheria/Tetanus/Acell Pertussis 0.5 ml 09/09/19 17:57 09/09/19 18:15 Adacel IM 09/09/19 17:58 0.5 ml .ONCE ONE Administration - Radiology Interpretation Free Text/Narrative:: X-ray of right foot shows fracture of base of the proximal phalanx of the right fifth toe. - Re-Assessments/Exams Free Text/Narrative Re-Assessment/Exam: 09/09/19 18:20: Patient has fracture of the base of the proximal phalanx of the fifth toe and it is somewhat angulated. The wounds are abrasions on both the fourth and fifth toes. These were cleaned by the nursing staff and an appropriate supportive dressing was applied to both toes. She has a flat bottom shoe at present. I will prescribe her Bactroban ointment to apply to the wounds times daily to try to prevent development of infection. I will also have her raudel tape the fourth and fifth toes for comfort and support in the next few days. She was told to her foot often and watch for any signs of infection. She was given a Tdap Immunization today to bring her tetanus immunization status up- to-date. Departure - Departure Time of Disposition: 18:35 Disposition: Home, Self-Care 01 Condition: Good Clinical Impression: Abrasion, right lesser toe(s), initial encounter Fracture of fifth toe, right, closed Qualifiers: Encounter type: initial encounter Qualified Code(s): S92.501A - Displaced unspecified fracture of right lesser toe(s), initial encounter for closed fracture - Discharge Information Prescriptions: Mupirocin Oint [Bactroban Oint] 22 gm TP TID #1 tube Instructions: Toe Fracture, [id number], Wound Care, Adult, Abrasion, Easy-to- Read Referrals: Kemar Case MD [Primary Care Provider] - Additional Instructions: You have a fracture of the base of your right fifth toe. Clean the wounds with soap and water and apply the Bactroban ointment to the wounds 3 times daily until they have healed. You should tape the fourth and fifth toes together and wear flat bottomed shoes for comfort and support and ambulate as tolerated. Try to of the right foot for the next few days and try to elevate it as often as possible. You may take Tylenol for pain as needed. Back to the emergency department for increasing pain, redness, fever or any other concerning sign or symptom. You were given a Tdap immunization today to bring your tetanus immunization status up-to-date. Sepsis Event Note - Focused Exam Vital Signs: Vital Signs Temp Pulse Resp BP Pulse Ox 09/09/19 17:45 36.3 C 98 20 138/74 99 Date Exam was Performed: 09/09/19 Time Exam was Performed: 18:43 - My Orders Last 24 Hours: My Active Orders 09/09/19 17:56 Foot Comp Min 3V Rt [CR] Stat 09/09/19 17:57 Vaccines to be Administered [RC] PER UNIT ROUTINE - Assessment/Plan Last 24 Hours: My Active Orders 09/09/19 17:56 Foot Comp Min 3V Rt [CR] Stat 09/09/19 17:57 Vaccines to be Administered [RC] PER UNIT ROUTINE
[2019-09-09] MEDS ORDERED: Diphtheria,Pertussis(Acell),Tetanus Vaccine 0.5 ML SDV IM ONE (17:57)
--- NOTE | 2019-09-10 10:38 | CR ---
INDICATION: Kicked object with right foot, now with pain. RIGHT FOOT: Three views of the right foot revealed an oblique fracture through the proximal metaphysis - shaft of the proximal phalanx of the 5th toe with medial angulation and possibly minimal dorsal angulation, at the fracture site. No other significant appearing bone or joint abnormality was identified. IMPRESSION: Medial dorsal angulation of the proximal phalangeal 5th toe fracture site on the right. MTDD
== END 2019-09-09 18:55 | disposition home or self-care (01) ==
LOC: FB.ED 17:33
DX: S92.511A Displaced fracture of proximal phalanx of right lesser toe(s), initial encounter for closed fracture (principal); I25.10 Atherosclerotic heart disease of native coronary artery without angina pectoris; E78.00 Pure hypercholesterolemia, unspecified; I10 Essential (primary) hypertension; I25.2 Old myocardial infarction; K21.9 Gastro-esophageal reflux disease without esophagitis; E11.9 Type 2 diabetes mellitus without complications; E03.9 Hypothyroidism, unspecified; F17.200 Nicotine dependence, unspecified, uncomplicated; Z23 Encounter for immunization; Z88.5 Allergy status to narcotic agent; Z88.8 Allergy status to other drugs, medicaments and biological substances; Z79.899 Other long term (current) drug therapy; W54.1XXA Struck by dog, initial encounter
CPT/HCPCS: 73630-RT; 90471; 90715; 99283-25

== ENCOUNTER 2020-02-18 02:34 | Emergency (ER) | payer MEDICAID ==
[2020-02-18] MEDS ORDERED: Sodium Chloride 0.9% 10 ML Syringe FLUSH PRN (03:03)
--- NOTE | 2020-02-18 04:23 | EDM.PDOC ---
ED HPI GENERAL MEDICAL PROBLEM - General Chief Complaint: Neuro Symptoms/Deficits Stated Complaint: TROUBLE SPEAKING Time Seen by Provider: 02/18/20 02:45 Source of Information: Reports: Patient History Limitations: Reports: No Limitations - History of Present Illness INITIAL COMMENTS - FREE TEXT/NARRATIVE: Patient presented to the ED because of word finding difficulty at about 0200 when she was talking to her daughter. The boyfriend talked to Carla and he noticed that she has difficulty in finding the words to say and it takes her a while to respond. She denies any double or blurry vision, no motor or sensory deficits. She scored 1 on the NIHSS. - Related Data Allergies Allergy/AdvReac Type Severity Reaction Status Date / Time codeine Allergy Vomiting Verified 02/18/20 02:46 naproxen [From Aleve] Allergy Rash Verified 02/18/20 02:46 Home Meds: Home Meds Amiodarone [Cordarone] 200 mg PO DAILY 05/15/18 [History] Furosemide 20 mg DAILY 05/15/18 [History] Insulin Glargine,Hum.Rec.Anlog [Basaglar Kwikpen U-100] 30 unit SQ BEDTIME 05/15/18 [History] Levothyroxine [Synthroid] 50 mcg PO ACBREAKFAST 05/15/18 [History] atorvaSTATin Calcium [Atorvastatin Calcium] 80 mg PO 1200 05/15/18 [History] carvediloL [Carvedilol] 6.25 mg PO DAILY 05/15/18 [History] metFORMIN [Glucophage XR] 500 mg PO BIDMEALS 05/15/18 [History] Aspirin [Ecotrin EC] 81 mg PO DAILY 02/18/20 [History] Past Medical History Cardiovascular History: Reports: CAD, High Cholesterol, Hypertension, [place] Other Cardiovascular History: 3 vessel bypass Respiratory History: Reports: Asthma Gastrointestinal History: Reports: Chronic Constipation, GERD, GI Bleed, PUD Genitourinary History: Reports: None 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 MANAGER 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: [id number] Musculoskeletal History: Reports: Arthritis Neurological History: Reports: Neuropathy, Diabetic Endocrine/Metabolic History: Reports: Diabetes, Type II, Hypothyroidism - Infectious Disease History Infectious Disease History: Reports: Chicken Pox, Shingles - Past Surgical History HEENT Surgical History: Reports: Myringotomy w Tube(s) Other HEENT Surgeries/Procedures: bilat tubes in ears Cardiovascular Surgical History: Reports: Coronary Artery Bypass GI Surgical History: Reports: EGD Female Surgical History: Reports: Section, Tubal Ligation Social & Family History - Family History Family Medical History: Noncontributory Endocrine/Metabolic: Reports: Diabetes, Type I - Tobacco Use Tobacco Use Status *Q: Current Every Day Tobacco User Years of Tobacco use: 30 Packs/Tins Daily: 0.5 - Caffeine Use Caffeine Use: Reports: Soda - Recreational Drug Use Recreational Drug Use: No - Living Situation & Occupation Occupation: Unemployed ED ROS GENERAL - Review of Systems Review Of Systems: See Below Constitutional: Reports: No Symptoms HEENT: Reports: No Symptoms Respiratory: Reports: No Symptoms Cardiovascular: Reports: No Symptoms Endocrine: Reports: No Symptoms GI/Abdominal: Reports: No Symptoms : Reports: No Symptoms Musculoskeletal: Reports: No Symptoms Skin: Reports: No Symptoms Neurological: Reports: Other (delayed in verbal response) ED EXAM, NEURO - Physical Exam Exam: See Below Exam Limited By: No Limitations General Appearance: Alert, No Apparent Distress Eye Exam: Bilateral Eye: PERRL Ears: Normal External Exam, Normal Canal Nose: Normal Inspection, Normal Mucosa Throat/Mouth: Normal Inspection, Normal Lips, Normal Teeth Head Exam: Atraumatic, Normocephalic Neck: Normal Inspection, Supple, Non-Tender, Full Range of Motion Respiratory/Chest: No Respiratory Distress, Lungs Clear, Normal Breath Sounds Cardiovascular: Normal Peripheral Pulses, Regular Rate, Rhythm, No Edema GI/Abdominal: Normal Bowel Sounds, Soft, Non-Tender, No Organomegaly Neurological: Alert, Normal Mood/Affect, Normal Dorsiflexion, CN II-XII Intact, Normal Plantar Flexion, Normal Gait, No Motor/Sensory Deficits, Oriented x 3 Course - Vital Signs Text/Narrative:: Labs/EKG/CXR/Head CT result was discussed with patient Patient refused to go to [facility] by an ambulance. She said she want to see her kids first and then her boyfriend will drop her to [facility]. Last Recorded V/S: Last Vital Signs Temp 36.7 C 02/18/20 02:40 Pulse 83 02/18/20 02:40 Resp 18 02/18/20 02:40 BP 165/88 H 02/18/20 02:40 Pulse Ox 100 02/18/20 02:40 - Orders/Labs/Meds Orders: Active Orders 24 hr Category Date Time Status EKG Documentation Completion [RC] ASDIRECTED Care 02/18/20 03:05 Active Chest 1V Frontal [CR] Stat Exams 02/18/20 03:03 Taken Head wo Cont [CT] Stat Exams 02/18/20 03:03 Taken Sodium Chloride 0.9% [Saline Flush] Med 02/18/20 03:03 Active 10 ml FLUSH ASDIRECTED PRN Saline Lock Insert [OM.PC] Routine Oth 02/18/20 03:03 Ordered EKG 12 Lead [EK] Routine Ther 02/18/20 03:03 Ordered Medication Orders Sodium Chloride (Saline Flush) 10 ml FLUSH ASDIRECTED PRN PRN Reason: Keep Vein Open Labs: Laboratory Tests 02/18/20 02/18/20 02/18/20 Range/Units 02:59 02:59 02:59 WBC 9.3 (4.5-12.0) X10-3/uL RBC 4.39 (3.23-5.20) x10(6)uL Hgb 13.6 (11.5-15.5) g/dL Hct 39.9 (30.0-51.3) % MCV 91.0 (80-96) fL MCH 31.0 (27.7-33.6) pg MCHC 34.0 (32.2-35.4) g/dL RDW 12.2 (11.5-15.5) % Plt Count 333 (125-369) X10(3)uL MPV 7.5 (7.4-10.4) fL Neut % (Auto) 65.4 (46-82) % Lymph % (Auto) 23.3 (13-37) % [place]imble % (Auto) 5.3 (4-12) % Eos % (Auto) 6 H (1.0-5.0) % Baso % (Auto) 1 (0-2) % Neut # (Auto) 6.1 (1.6-8.3) # Lymph # (Auto) 2.2 (0.6-5.0) # Trimble # (Auto) 0.5 (0.0-1.3) # Eos # (Auto) 0.5 (0.0-0.8) # Baso # (Auto) 0.0 (0.0-0.2) # PT 10.3 (9.0-11.1) sec INR 0.95 L (1.00-1.24) APTT 28.0 (24.4-33.2) SECONDS Sodium 138 (135-145) mmol/L Potassium 3.6 D (3.5-5.3) mmol/L Chloride 103 D (100-110) mmol/L Carbon Dioxide 26 (21-32) mmol/L BUN 14 D (7-18) mg/dL Creatinine 0.9 (0.55-1.02) mg/dL Est Cr Clr Drug Dosing 62.43 mL/min Estimated GFR (MDRD) > 60 (>60) BUN/Creatinine Ratio 15.6 (9-20) Glucose 195 H D (80-116) mg/dL Calcium 8.5 L D (8.6-10.2) mg/dL Total Bilirubin 0.3 (0.1-1.3) mg/dL AST 10 (5-25) IU/L ALT 16 D (12-36) U/L Alkaline Phosphatase 85 (56-112) IU/L Troponin I (4.0-60.3) pg/mL Total Protein 7.4 (6.0-8.0) g/dL Albumin 3.5 (3.5-5.2) g/dL Globulin 3.9 g/dL Albumin/Globulin Ratio 0.9 TSH, Ultra Sensitive (0.36-3.74) IU/mL 02/18/20 02/18/20 Range/Units 02:59 02:59 WBC (4.5-12.0) X10-3/uL RBC (3.23-5.20) x10(6)uL Hgb (11.5-15.5) g/dL Hct (30.0-51.3) % MCV (80-96) fL MCH (27.7-33.6) pg MCHC (32.2-35.4) g/dL RDW (11.5-15.5) % Plt Count (125-369) X10(3)uL MPV (7.4-10.4) fL Neut % (Auto) (46-82) % Lymph % (Auto) (13-37) % [place]ble % (Auto) (4-12) % Eos % (Auto) (1.0-5.0) % Baso % (Auto) (0-2) % Neut # (Auto) (1.6-8.3) # Lymph # (Auto) (0.6-5.0) # Trimble # (Auto) (0.0-1.3) # Eos # (Auto) (0.0-0.8) # Baso # (Auto) (0.0-0.2) # PT (9.0-11.1) sec INR (1.00-1.24) APTT (24.4-33.2) SECONDS Sodium (135-145) mmol/L Potassium (3.5-5.3) mmol/L Chloride (100-110) mmol/L Carbon Dioxide (21-32) mmol/L BUN (7-18) mg/dL Creatinine (0.55-1.02) mg/dL Est Cr Clr Drug Dosing mL/min Estimated GFR (MDRD) (>60) BUN/Creatinine Ratio (9-20) Glucose (80-116) mg/dL Calcium (8.6-10.2) mg/dL Total Bilirubin (0.1-1.3) mg/dL AST (5-25) IU/L ALT (12-36) U/L Alkaline Phosphatase (56-112) IU/L Troponin I 6.8 (4.0-60.3) pg/mL Total Protein (6.0-8.0) g/dL Albumin (3.5-5.2) g/dL Globulin g/dL Albumin/Globulin Ratio TSH, Ultra Sensitive 18.01 H* (0.36-3.74) IU/mL Meds: Medications Generic Name Dose Route Start Last Admin Trade Name Freq PRN Reason Stop Dose Admin Sodium Chloride 10 ml 02/18/20 03:03 Saline Flush FLUSH ASDIRECTED PRN Keep Vein Open Departure - Departure Time of Disposition: 04:00 Disposition: DC/Tfer to Acute Hospital 02 Condition: Good Clinical Impression: TIA (transient ischemic attack), Hypothyroidism - Discharge Information Referrals: Kemar Case MD [Primary Care Provider] - Additional Instructions: Proceed to [facility] ER Sepsis Event Note (ED) - Evaluation Sepsis Screening Result: No Definite Risk - Focused Exam Vital Signs: Vital Signs Temp Pulse Resp BP Pulse Ox 02/18/20 02:40 36.7 C 83 18 165/88 H 100 - My Orders Last 24 Hours: My Active Orders 02/18/20 03:03 Chest 1V Frontal [CR] Stat Head wo Cont [CT] Stat Sodium Chloride 0.9% [Saline Flush] 10 ml FLUSH ASDIRECTED PRN Saline Lock Insert [OM.PC] Routine EKG 12 Lead [EK] Routine 02/18/20 03:05 EKG Documentation Completion [RC] ASDIRECTED - Assessment/Plan Last 24 Hours: My Active Orders 02/18/20 03:03 Chest 1V Frontal [CR] Stat Head wo Cont [CT] Stat Sodium Chloride 0.9% [Saline Flush] 10 ml FLUSH ASDIRECTED PRN Saline Lock Insert [OM.PC] Routine EKG 12 Lead [EK] Routine 02/18/20 03:05 EKG Documentation Completion [RC] ASDIRECTED
--- NOTE | 2020-02-18 09:49 | CR ---
INDICATION: Aphasia. CHEST, ONE VIEW: A single AP upright view of the chest was obtained 02/18/20 - no comparisons available. The heart did not appear enlarged or abnormal in shape. Median sternotomy is noted with the superior most two wire sutures fractured. An active infiltrate or effusion was not identified. IMPRESSION: No acute process. MTDD
== END 2020-02-18 04:26 ==
LOC: FB.ED 02:34
DX: G45.9 Transient cerebral ischemic attack, unspecified (principal); E03.9 Hypothyroidism, unspecified; I25.10 Atherosclerotic heart disease of native coronary artery without angina pectoris; E78.00 Pure hypercholesterolemia, unspecified; I10 Essential (primary) hypertension; I25.2 Old myocardial infarction; J45.909 Unspecified asthma, uncomplicated; M19.90 Unspecified osteoarthritis, unspecified site; E11.40 Type 2 diabetes mellitus with diabetic neuropathy, unspecified; F17.210 Nicotine dependence, cigarettes, uncomplicated; Z88.5 Allergy status to narcotic agent; Z88.6 Allergy status to analgesic agent; Z79.4 Long term (current) use of insulin; Z79.899 Other long term (current) drug therapy; Z95.1 Presence of aortocoronary bypass graft; Z79.82 Long term (current) use of aspirin
CPT/HCPCS: 36415; 70450; 71045; 80053; 84443; 84484; 85025; 85610; 85730; 93005; 99285-25

== ENCOUNTER 2021-03-28 13:39 | Emergency (ER) | payer MEDICAID ==
[2021-03-28] MEDS ORDERED: Sodium Chloride 0.9% 10 ML Syringe FLUSH PRN (13:43)
--- NOTE | 2021-03-28 14:33 | EDM.PDOC ---
ED HPI GENERAL MEDICAL PROBLEM - General Chief Complaint: General Stated Complaint: COVID Time Seen by Provider: 03/28/21 13:45 Source of Information: Reports: Patient History Limitations: Reports: No Limitations - History of Present Illness INITIAL COMMENTS - FREE TEXT/NARRATIVE: Patient presented to the ED because cough productive of yellowish phlegm, weakness, fatigue and dyspnea for 1 week. There is no fever but has some chills. She also c/o nausea but no vomiting or diarrhea. No chest pain, palpitations or leg edema. - Related Data Allergies Allergy/AdvReac Type Severity Reaction Status Date / Time codeine Allergy Vomiting Verified 02/18/20 02:46 naproxen [From Aleve] Allergy Rash Verified 02/18/20 02:46 Home Meds: Home Meds Amiodarone [Cordarone] 200 mg PO DAILY 05/15/18 [History] Furosemide 20 mg DAILY 05/15/18 [History] Insulin Glargine,Hum.Rec.Anlog [Basaglar Kwikpen U-100] 30 unit SQ BEDTIME 05/15/18 [History] Levothyroxine [Synthroid] 50 mcg PO ACBREAKFAST 05/15/18 [History] atorvaSTATin Calcium [Atorvastatin Calcium] 80 mg PO 1200 05/15/18 [History] carvediloL [Carvedilol] 6.25 mg PO DAILY 05/15/18 [History] metFORMIN [Glucophage XR] 500 mg PO BIDMEALS 05/15/18 [History] Aspirin [Ecotrin EC] 81 mg PO DAILY 02/18/20 [History] Amoxicillin/Potassium Clav [Augmentin 875-125 Tablet] 1 each PO BID #20 tablet 03/28/21 [Rx] predniSONE [Prednisone] 20 mg PO DAILY #7 tablet 03/28/21 [Rx] Past Medical History Cardiovascular History: Reports: CAD, High Cholesterol, Hypertension, HI Other Cardiovascular History: 3 vessel bypass Respiratory History: Reports: Asthma Gastrointestinal History: Reports: Chronic Constipation, GERD, GI Bleed, PUD Genitourinary History: Reports: None 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: [id number] Musculoskeletal History: Reports: Arthritis Neurological History: Reports: Neuropathy, Diabetic Endocrine/Metabolic History: Reports: Diabetes, Type II, Hypothyroidism - Infectious Disease History Infectious Disease History: Reports: Chicken Pox, Shingles - Past Surgical History HEENT Surgical History: Reports: Myringotomy w Tube(s) Other HEENT Surgeries/Procedures: bilat tubes in ears Cardiovascular Surgical History: Reports: Coronary Artery Bypass GI Surgical History: Reports: EGD Female Surgical History: Reports: Section, Tubal Ligation Other Female Surgeries/Procedures: CS x 1 Social & Family History - Family History Family Medical History: No Pertinent Family History Endocrine/Metabolic: Reports: Diabetes, Type I - Tobacco Use Tobacco Use Status *Q: Current Every Day Tobacco User Years of Tobacco use: 10 Packs/Tins Daily: 1 - Caffeine Use Caffeine Use: Reports: None - Living Situation & Occupation Occupation: Unemployed ED ROS GENERAL - Review of Systems Review Of Systems: See Below Constitutional: Reports: No Symptoms HEENT: Reports: No Symptoms Respiratory: Reports: Shortness of Breath, Cough Cardiovascular: Reports: No Symptoms Endocrine: Reports: No Symptoms GI/Abdominal: Reports: No Symptoms : Reports: No Symptoms Musculoskeletal: Reports: No Symptoms Skin: Reports: No Symptoms Neurological: Reports: No Symptoms Psychiatric: Reports: Hallucinations Hematologic/Lymphatic: Reports: No Symptoms Immunologic: Reports: No Symptoms ED EXAM, GENERAL - Physical Exam Exam: See Below Exam Limited By: No Limitations General Appearance: Alert, No Apparent Distress Ears: Normal External Exam, Normal Canal Nose: Normal Inspection, Normal Mucosa Throat/Mouth: Normal Inspection, Normal Lips, Normal Teeth Head: Atraumatic, Normocephalic Neck: Normal Inspection, Supple, Non-Tender, Full Range of Motion Respiratory/Chest: No Respiratory Distress, Normal Breath Sounds, Rhonchi, Wheezing Cardiovascular: Normal Peripheral Pulses, Regular Rate, Rhythm, No Edema, No Gallop, No JVD, No Murmur GI/Abdominal: Normal Bowel Sounds, Soft, Non-Tender, No Organomegaly, No Distention Back Exam: Normal Inspection, Full Range of Motion Extremities: Normal Inspection, Normal Range of Motion, Non-Tender, No Pedal Edema, Normal Capillary Refill Neurological: Alert, Oriented, CN II-XII Intact, Normal Cognition, Normal Gait, Normal Reflexes, No Motor/Sensory Deficits Psychiatric: Normal Affect Skin Exam: Warm #1 Interpretation EKG Date: 03/28/21 Time: 13:57 Rhythm: NSR Rate (Beats/Min): 79 [place]: Normal P-Wave: Present QRS: Normal ST-T: Normal QT: Normal NE/PQ Interval: 162 Comparison: No Change EKG Interpretation Comments: NSR Old anterior infarct LAE Course - Vital Signs Text/Narrative:: Lab/EKG/CXR/Chest CTA result was reviewed and discussed with patient Last Recorded V/S: Last Vital Signs Temp 36.4 C 03/28/21 13:41 Pulse 82 03/28/21 13:41 Resp 16 03/28/21 13:41 BP 179/91 H 03/28/21 13:41 Pulse Ox 99 03/28/21 13:41 - Orders/Labs/Meds Orders: Active Orders 24 hr Category Date Time Status Ang Chest [CT] Stat Exams 03/28/21 14:34 Taken Sodium Chloride 0.9% [Saline Flush] Med 03/28/21 13:43 Active 10 ml FLUSH ASDIRECTED PRN Saline Lock Insert [OM.PC] Routine Oth 03/28/21 13:43 Ordered EKG 12 Lead [EK] Routine Ther 03/28/21 13:43 Ordered Medication Orders Sodium Chloride (Sodium Chloride 0.9% 10 Ml Syringe) 10 ml FLUSH ASDIRECTED PRN PRN Reason: Keep Vein Open Last Admin: 03/28/21 13:54 Dose: 10 ml Documented by: KEVAN Labs: Laboratory Tests 03/28/21 03/28/21 03/28/21 Range/Units 13:55 13:55 13:55 WBC 11.0 H (3.0-10.3) x10-3/uL RBC 4.01 (3.60-5.20) x10(6)uL Hgb 12.0 (11.4-15.5) g/dL Hct 36.1 (34.2-48.2) % MCV 90.0 (76.7-100.5) fL MCH 29.9 (23.9-33.9) pg MCHC 33.2 (31.9-34.8) g/dL RDW 12.1 L (12.3-16.5) % Plt Count 296 (151-488) x10(3)uL MPV 7.9 (7.1-12.4) fL Neut % (Auto) 73.2 (30.8-76.2) % Lymph % (Auto) 17.8 L (18.4-52.1) % [place] % (Auto) 5.2 (4.4-15.7) % Eos % (Auto) 3.3 (0.6-8.1) % Baso % (Auto) 0.5 (0.2-1.5) % Neut # (Auto) 8.1 H (1.5-6.3) x10-3/uL Lymph # (Auto) 2.0 (1.0-4.4) x10-3/uL [place] # (Auto) 0.6 (0.3-1.0) x10-3/uL Eos # (Auto) 0.4 (0.0-0.8) x10-3/uL Baso # (Auto) 0.1 (0.0-0.1) x10-3/uL D-Dimer, Quantitative 1.03 H (0.0-0.59) mg/LFEU Sodium 130 L (135-145) mmol/L Potassium 5.0 D (3.5-5.3) mmol/L Chloride 96 L D (100-110) mmol/L Carbon Dioxide 27 (21-32) mmol/L BUN 17 (7-18) mg/dL Creatinine 1.3 H (0.55-1.02) mg/dL Est Cr Clr Drug Dosing TNP Estimated GFR (MDRD) 44 L (>60) BUN/Creatinine Ratio 13.1 (9-20) Glucose 375 H D (80-116) mg/dL Calcium 9.7 (8.6-10.2) mg/dL Troponin I (4.0-60.3) pg/mL NT-Pro-B Natriuret Pep (<=125) pg/mL SARS-CoV-2 RNA ([facility]) (NEGATIVE) 03/28/21 03/28/21 Range/Units 13:55 14:11 WBC (3.0-10.3) x10-3/uL RBC (3.60-5.20) x10(6)uL Hgb (11.4-15.5) g/dL Hct (34.2-48.2) % MCV (76.7-100.5) fL MCH (23.9-33.9) pg MCHC (31.9-34.8) g/dL RDW (12.3-16.5) % Plt Count (151-488) x10(3)uL MPV (7.1-12.4) fL Neut % (Auto) (30.8-76.2) % Lymph % (Auto) (18.4-52.1) % [place] % (Auto) (4.4-15.7) % Eos % (Auto) (0.6-8.1) % Baso % (Auto) (0.2-1.5) % Neut # (Auto) (1.5-6.3) x10-3/uL Lymph # (Auto) (1.0-4.4) x10-3/uL [place] # (Auto) (0.3-1.0) x10-3/uL Eos # (Auto) (0.0-0.8) x10-3/uL Baso # (Auto) (0.0-0.1) x10-3/uL D-Dimer, Quantitative (0.0-0.59) mg/LFEU Sodium (135-145) mmol/L Potassium (3.5-5.3) mmol/L Chloride (100-110) mmol/L Carbon Dioxide (21-32) mmol/L BUN (7-18) mg/dL Creatinine (0.55-1.02) mg/dL Est Cr Clr Drug Dosing Estimated GFR (MDRD) (>60) BUN/Creatinine Ratio (9-20) Glucose (80-116) mg/dL Calcium (8.6-10.2) mg/dL Troponin I 5.4 (4.0-60.3) pg/mL NT-Pro-B Natriuret Pep 1416 H* (<=125) pg/mL SARS-CoV-2 RNA ([facility]) Negative (NEGATIVE) Meds: Medications Generic Name Dose Route Start Last Admin Trade Name Freq PRN Reason Stop Dose Admin Sodium Chloride 10 ml 03/28/21 13:43 03/28/21 13:54 Sodium Chloride 0.9% 10 Ml Syringe FLUSH 10 ml ASDIRECTED PRN Administration Keep Vein Open Discontinued Medications Generic Name Dose Route Start Last Admin Trade Name Freq PRN Reason Stop Dose Admin Iopamidol 75 ml 03/28/21 14:43 03/28/21 15:21 Iopamidol 755 Mg/Ml 75 Ml Bottle IV 03/28/21 14:44 75 ml ASDIRECTED ONE Administration Departure - Departure Time of Disposition: 15:35 Disposition: Home, Self-Care 01 Condition: Good Clinical Impression: Acute sinusitis, COPD exacerbation - Discharge Information Prescriptions: Amoxicillin/Potassium Clav [Augmentin 875-125 Tablet] 1 each PO BID #20 tablet predniSONE [Prednisone] 20 mg PO DAILY #7 tablet Instructions: Chronic Obstructive Pulmonary Disease Exacerbation, [id number], Sinusitis, Adult, [id number] Referrals: Bárbara Curtis, [facility] [Primary Care Provider] - Forms: ED Department Discharge Additional Instructions: Please read discharge instructions on sinusitis and COPD flare up Mucinex(over the counter)600 mg twice daily for 5 days Augmentin 875 mg twice daily for 10 days Prednisone 20 mg daily for 7 days Continue your inhaler DO NOT TAKE YOUR METFORMIN/GLUCOPHAGE FOR 2 DAYS Follow up as needed Sepsis Event Note (ED) - Evaluation Sepsis Screening Result: No Definite Risk - Focused Exam Vital Signs: Vital Signs Temp Pulse Resp BP Pulse Ox 03/28/21 13:41 36.4 C 82 16 179/91 H 99 - My Orders Last 24 Hours: My Active Orders 03/28/21 13:43 Sodium Chloride 0.9% [Saline Flush] 10 ml FLUSH ASDIRECTED PRN Saline Lock Insert [OM.PC] Routine EKG 12 Lead [EK] Routine 03/28/21 14:34 Ang Chest [CT] Stat - Assessment/Plan Last 24 Hours: My Active Orders 03/28/21 13:43 Sodium Chloride 0.9% [Saline Flush] 10 ml FLUSH ASDIRECTED PRN Saline Lock Insert [OM.PC] Routine EKG 12 Lead [EK] Routine 03/28/21 14:34 Ang Chest [CT] Stat
[2021-03-28] MEDS ORDERED: Iopamidol 755 Mg/ML 75 ML Bottle IV ONE (14:43)
--- NOTE | 2021-03-28 15:45 | CR ---
INDICATION: Short of breath. CHEST, ONE VIEW: Portable AP upright view of the chest, 03/28/21, compared with 02/18/20. The heart did not appear enlarged with post median sternotomy change. A definite active infiltrate or effusion was not identified with pulmonary markings similar to the previous study. IMPRESSION: Stable chest. No acute process. MTDD
--- NOTE | 2021-03-28 17:08 | CT ---
INDICATION: Dyspnea, elevated D-dimer, smoker one [id number] COMPUTERIZED TOMOGRAPHY ANGIOGRAPHY OF THE CHEST WITH CONTRAST: Spiral 1.25 mm axial sections were obtained through the chest with 75 mL [id number] at 4 mL/second with sagittal, axial and coronal reconstructions, 03/28/21 and compared with 05/01/18. TOTAL EXAM DLP: 255.42 mGy/cm. The thyroid lobes appear to be increased in size compared with the previous examination suggesting thyromegaly. The right lobe extends into the upper chest slightly. There is some minimal calcification in the arch of the aorta. Mild degree of mediastinal lymphadenopathy is noted, which is stable and nonspecific. Coronary artery calcification is suggested. The heart appears to be at the upper limits of normal in size and may be slightly increased in size compared with the previous examination. No pericardial effusion was seen. Upper abdomen included on the study revealed aortic and splenic artery calcifications. Mild emphysematous changes are noted in the lungs. A definite active infiltrate or effusion was not identified. No nodule or masses were seen. No evidence of pulmonary emboli could be identified. IMPRESSION: 1. No evidence of pulmonary emboli. 2. No acute process in the chest. 3. ASD/ASHD. Report was called to Dr. Waterman at 1735 hours. [facility]
== END 2021-03-28 16:50 | disposition home or self-care (01) ==
LOC: FB.ED 13:39
DX: J44.1 Chronic obstructive pulmonary disease with (acute) exacerbation (principal); J01.90 Acute sinusitis, unspecified; I25.10 Atherosclerotic heart disease of native coronary artery without angina pectoris; E78.00 Pure hypercholesterolemia, unspecified; I10 Essential (primary) hypertension; I25.2 Old myocardial infarction; E10.40 Type 1 diabetes mellitus with diabetic neuropathy, unspecified; E03.9 Hypothyroidism, unspecified; Z88.5 Allergy status to narcotic agent; Z79.4 Long term (current) use of insulin; Z79.899 Other long term (current) drug therapy; Z79.82 Long term (current) use of aspirin; Z72.0 Tobacco use; Z20.822 Contact with and (suspected) exposure to COVID-19
CPT/HCPCS: 36415; 71045; 71275; 80048; 83880; 84484; 85025; 85379; 87635; 93005; 99285; Q9967; U0002